=== PATIENT | female | born 1970 | race Two or more races ===

== ENCOUNTER 2018-03-20 10:59 | Inpatient (IN) | payer OTHER ==
[~2018-03-20] VITALS: Ht 160 cm; Wt 77.1 kg
[2018-04-15] MEDS ORDERED: PANTOPRAZOLE SO40 MG PO (13:31)
[2018-04-15] MEDS ORDERED: TRAM1TAB98 PO (13:31)
[2018-04-15] MEDS ORDERED: Intestinex CAP PO (13:31)
[2018-04-15] MEDS ORDERED: FLAGYL500MG PO (13:32)
[2018-04-15] MEDS ORDERED: CIPRO500 MG PO (13:32)
== END 2018-04-15 15:04 | disposition home or self-care (01) | DRG 331 ==
LOC: O/R 04-11 06:00 → SURG 04-11 06:00 → SURH 04-11 07:00 → SURG 04-11 15:52
PROVIDERS: ADMIT Surgery
PROC: 07TC4ZZ Resection of Pelvis Lymphatic, Percutaneous Endoscopic Approach (ICD-10-PCS; 2018-04-11)
PROC: 0DJD8ZZ Inspection of Lower Intestinal Tract, Via Natural or Artificial Opening Endoscopic (ICD-10-PCS; 2018-04-11)
PROC: 0DTN4ZZ Resection of Sigmoid Colon, Percutaneous Endoscopic Approach (ICD-10-PCS; principal; 2018-04-11 07:00)
DX: C18.7 Malignant neoplasm of sigmoid colon (principal); R59.0 Localized enlarged lymph nodes; E78.00 Pure hypercholesterolemia, unspecified

== ENCOUNTER 2018-04-09 08:52 | Outpatient (CLI) | payer OTHER | END 2018-04-09 10:06 | disposition home or self-care (01) | LOC: RAD 501 08:52 | DX: D37.4 Neoplasm of uncertain behavior of colon (principal); R19.5 Other fecal abnormalities; R59.0 Localized enlarged lymph nodes ==

== ENCOUNTER 2018-07-31 08:11 | Outpatient (CLI) | payer OTHER ==
[~2018-07-31 08:11] MED LIST: CIPRO500 MG PO; FLAGYL500MG PO; Intestinex CAP PO; PANTOPRAZOLE SO40 MG PO; TRAM1TAB98 PO
== END 2018-07-31 09:09 | disposition home or self-care (01) ==
LOC: NUCLEAR 08:11
DX: C18.7 Malignant neoplasm of sigmoid colon (principal); D37.4 Neoplasm of uncertain behavior of colon; R19.5 Other fecal abnormalities
CPT/HCPCS: 78816; A9552